=== PATIENT | male | born 1965 | race Hispanic/Latino ===

== ENCOUNTER 2019-06-13 19:53 | Inpatient (IN) | payer OTHER ==
[~2019-06-13 19:53] MED LIST: Iopamidol 370 76% 100 ML VIAL ONE; Iopamidol 370 76% 50 ML VIAL FS ONE
[2019-06-13] MEDS ORDERED: Heparin 25,000 units/D5W 500 ML ONE (20:21)
[2019-06-13] MEDS ORDERED: Nitroglycerin 0.4 MG TAB (25 Tab Bottle) SL PRN (20:35)
[2019-06-13] MEDS ORDERED: Morphine 2 MG/ML SYRINGE SLOW IVP PRN (20:35)
[2019-06-13] MEDS ORDERED: Sodium Chloride 0.9% 1,000 ML IV SCH (20:45)
[2019-06-13] MEDS ORDERED: Potassium Chloride 20 MEQ TAB PO SCH (20:45)
[2019-06-13] MEDS ORDERED: Atorvastatin Calcium 40 MG TAB PO SCH (21:00)
--- NOTE | 2019-06-13 21:09 | HP ---
CHIEF COMPLAINT: Chest pain. HISTORY OF PRESENT ILLNESS: Mr. Sharp is a pleasant 53-year-old white gentleman who comes to the hospital through his own car for chest pain. He went to the [place] [facility] where he had an EKG that showed anterior ST elevations with the reciprocal changes, so he was transferred over for further evaluation and care. He was taken emergently to the catheterization lab, when he was found to have a left main disease with severe LAD complex lesion with diagonal and severe intermediate ramus disease as well as severe OM1 disease. He has a nondominant right which has a 90% obstruction as well proximally. His EF remains about 50% to 55% with mostly apical hypokinesis. He is pain free on his arrival to [place] here in [place] and remains pain-free at the end of our procedure. He denies having any problems with his heart in the past. He recently had a physical for his company and even had a stress test for this, which was unremarkable. PAST MEDICAL HISTORY: Hypertension. SOCIAL HISTORY: No alcohol, tobacco, or drugs. 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 FAMILY HISTORY: Noncontributory. REVIEW OF SYSTEMS: A 12-point review of systems was done and was all negative unless stated in the History of Present Illness. OUTPATIENT MEDICATIONS: 1. Lisinopril 10 mg a day. 2. Amlodipine 10 mg a day. ALLERGIES: NO KNOWN DRUG ALLERGIES. PHYSICAL EXAMINATION: VITAL SIGNS: Blood pressure 142/88, heart rate of 72, respiratory rate 20, saturating 98% on 2 L nasal cannula. GENERAL: Awake, alert, oriented x3. No distress. HEENT: Normocephalic, atraumatic. NECK: Supple. LUNGS: Clear. CARDIOVASCULAR: S1, S2. No S3 or S4. No murmurs. ABDOMEN: Soft. Positive bowel sounds. EXTREMITIES: No edema. SKIN: Warm and dry. LABORATORY WORK: Reviewed. CBC with a white count of 12, hemoglobin of 16, hematocrit of 51, platelet count of 308. Chemistry with a sodium of 137, potassium was 2.9, chloride of 101, carbon dioxide of 20, anion gap of 19, BUN of 14, creatinine 0.95, GFR of 83, glucose of 120, calcium of 10, total bilirubin of 0.4. AST, ALT, alkaline phosphatase were all normal. CK 145, CK-MB 1.3 with a troponin of 0.05, subsequent troponin was 0.624. Albumin of 4.8, lipase of 34. EKG was reviewed. Chest x-ray was reviewed. No acute process. ASSESSMENT AND PLAN: 1. Acute anterior ST-elevation myocardial infarction. 2. Multivessel coronary artery disease. 3. Left main disease. 4. Hypertension. PLANS: 1. Consultation with Cardiothoracic Surgery for revascularization with bypass surgery. I already spoke with Dr. Silva. He will evaluate today as the patient is stable hemodynamically, chest pain-free. This may be performed tomorrow morning instead of emergently at this time. 2. We will continue a heparin drip overnight. 3. Bedrest for now. Strict. 4. PPI for stress ulcer prophylaxis. 5. Full code. 6. Disposition, pending clinical evolution. Job ID: [id number]
[2019-06-13 21:23] LABS: CKMB 29.3 ng/mL (0-6.6); Troponin I 1.453 ng/mL (< 0.028)
[2019-06-13 21:49] VITALS: BMI 28.0
[2019-06-13] MEDS ORDERED: Communication Order-Pharmacy FS SCH (22:16)
[2019-06-13 22:41] LABS: Hemoglobin A1c 5.5 % (4.0-6.0)
[2019-06-13] MEDS ORDERED: Heparin 10,000 UNITS/ 10 ML VIAL SLOW IVP SCH (22:45)
[2019-06-13] MEDS ORDERED: Heparin 25,000 units/D5W 500 ML IV SCH (22:45)
[2019-06-14 02:52] LABS: #Lymphocytes 1.2 thou/uL (1.20-3.40); #Monocytes 0.6 thou/uL (0.11-0.59); #Neutrophils 7.8 thou/uL (1.40-6.50); %Basophils 0.2 % (0.0-1.0); %Eosinophils 0.3 % (0.0-10.0); %Lymphocytes 12.3 % (21.0-51.0); %Monocytes 6.4 % (0.0-10.0); %Neutrophils 80.8 % (42.0-75.0); Hemoglobin 15.1 g/dL (14.0-18.0); Mean Corpuscular HGB CONC 34.6 g/dL (32.0-36.0); Mean Corpuscular Volume 89.5 fL (78.0-98.0); Mean Platelet Volume 6.1 fL (7.4-10.4); Platelet Count 250 thou/uL (130-400); RBC Distribution Width 12.2 % (11.5-14.5); Red Blood Cell (RBC) Count 4.86 mill/uL (4.70-6.10); White Blood Cell (WBC) Count 9.7 thou/uL (4.8-10.8)
[2019-06-14 03:23] LABS: ALT (SGPT) 49 U/L (8-55); AST (SGOT) 125 U/L (5-34); Albumin 4.1 g/dL (3.5-5.0); Alkaline Phosphatase 78 U/L (40-150); Anion Gap 13 mmol/L (10-20); BUN (Urea Nitrogen) 13 mg/dL (8.4-25.7); Bilirubin, Total 0.4 mg/dL (0.2-1.2); Calc. Creatinine Clearance 149 mL/min (70-130); Calcium 9.1 mg/dL (7.8-10.44); Carbon Dioxide 22 mmol/L (22-29); Chloride 104 mmol/L (98-107); Estimated GFR-MDRD Greater than 90; Globulin 2.6 g/dL (2.4-3.5); Glucose 144 mg/dL (70-105); Potassium 3.9 mmol/L (3.5-5.1); Protein, Total 6.7 g/dL (6.0-8.3); Sodium 135 mmol/L (136-145)
[2019-06-14 03:44] LABS: CKMB 80.3 ng/mL (0-6.6); Troponin I 24.533 ng/mL (< 0.028)
--- NOTE | 2019-06-14 03:57 | CON ---
DATE OF CONSULTATION: 06/13/2019 REQUESTING PHYSICIAN: Dr. Brown. CHIEF COMPLAINT: Chest tightness. HISTORY OF PRESENT ILLNESS: The patient is 53-year-old man with minimal past medical history, but a positive family history of premature coronary artery disease. Yesterday while doing simple chores around the house, he noticed that he was a little bit short of breath far more easily than he should have been. He had no more problems until this morning when he had some esmer chest tightness while drinking his morning cup of coffee. It was not particularly bad and was a brief episode and resolved spontaneously. This evening, however, the chest tightness recurred, this time being much more severe. He had an odd sensation in his left arm, and he broke out into a cold sweat. At an outside institution, he was noted to have ST elevation, and he was transferred here. By his arrival at [facility], he was pain-free, but already had an elevated troponin which has trended upwards. He was taken urgently to cardiac catheterization, where he was found to have severe coronary artery disease and included an ostial left main lesion. PAST MEDICAL HISTORY: Significant for hypertension. MEDICATIONS: His home medications are: 1. Lisinopril 10 mg a day. 2. Norvasc 10 mg a day. ALLERGIES: HE DENIES ANY MEDICAL ALLERGIES. SOCIAL HISTORY: He does not smoke. His father had a heart attack in his mid 50s. A paternal uncle underwent coronary artery bypass grafting in his 70s. REVIEW OF SYSTEMS: Negative for any antecedent chest pain, pressure, squeezing, or tightness, any antecedent dyspnea on exertion, any orthopnea, swelling, PND, any eye, speech, facial, or extremity symptoms consistent with TIAs. Negative for any claudication symptoms. Negative for any shortness of breath. PHYSICAL EXAMINATION: GENERAL: He is a young, healthy-appearing man in no distress. VITAL SIGNS: Height 5 feet 9 inches. Weight is 175 pounds. On arrival in our emergency room, his heart rate was 103 and blood pressure 145/101. His heart rate is now 79 and blood pressure 136/63. He has no xanthelasma, no JVD, no carotid bruits. CHEST: Clear to auscultation. He has a regular rate and rhythm. ABDOMEN: Soft and nontender. He has easily palpable radial, popliteal, and dorsalis pedis pulses. He has a right femoral sheath in place. EXTREMITIES: Devon testing on his nondominant left hand was normal, both clinically based on capillary refill and on pulse oximetry waveform. He has no obvious varicosities. NEUROLOGIC: Grossly nonfocal. LABORATORY DATA: Showed a white count of 12.0, hemoglobin of 16.9, hematocrit of 51.8, and platelets 308,000. Sodium is 137, potassium 2.9, chloride 101, CO2 of 20, glucose 120, BUN 14, creatinine 0.95, calcium is 10, protein 8.1, albumin 4.8, bilirubin 0.4, alkaline phosphatase 87, AST 34, ALT 51. His initial CK-MB was 1.3 and a followup done about 2 hours later was 29.3. His initial troponin was 0.056. About an hour and a half later, it was 0.624, and about an hour after that, was 1.453. His chest x-ray is somewhat under-penetrated, but it is somewhat suggestive of edema. His cardiac catheterization shows a left dominant system with disease, but very small nondominant right. He has about a 60% ostial left main lesion that causes pressure waveform damping when engaging a 6-Bahraini catheter. He has a very high-grade 95 or greater percent lesion in the LAD at the first septal prospect manager. He has a bifurcated very high diagonal or ramus-type vessel that bifurcates. He has a long but small caliber second diagonal with a high-grade lesion in it. He has some luminal irregularity in his mid LAD. There is a 95% or greater lesion and fairly good-sized OM-1 after some luminal irregularity in the proximal circumflex and then the circumflex terminates in arborization that includes a fairly good-sized circumflex PDA. LVEF is around 60% with some mild inferior apical hypokinesis. LV pressure is 130/1 with EDP of 21. Aortic pressure on pullback was 135/77 with a mean of 105. IMPRESSION AND RECOMMENDATIONS: Acute myocardial infarction with an ostial left main lesion in a left dominant system in addition to severe disease in proximal LAD, a ramus type vessel, and a large OM. His second diagonal may or may not be bypassable. I will plan on coronary artery bypass grafting. Job ID: [id number]
[2019-06-14] MEDS ORDERED: Heparin 30,000 units/30 ml VIAL ONE ×2 (07:28→09:34)
[2019-06-14] MEDS ORDERED: Norepinephrine 4 MG/4 ML VIAL ONE ×2 (07:28→09:34)
[2019-06-14] MEDS ORDERED: Aminocaproic Acid 5 GM/20 ML VIAL ONE ×2 (07:28→09:34)
[2019-06-14] MEDS ORDERED: Lidocaine 1% PF 5 ML VIAL ONE (07:28)
[2019-06-14] MEDS ORDERED: Rocuronium Bromide 10 MG/ML (10ML VIAL) ONE (07:28)
[2019-06-14] MEDS ORDERED: Sodium Bicarb 50 MEQ/50 ML VIAL ONE ×2 (07:28→09:34)
[2019-06-14] MEDS ORDERED: PHENYLEPHRINE-NS 100 MCG/ML 10 ML SYRINGE ONE (07:28)
[2019-06-14] MEDS ORDERED: Cardioplegic Soln 1,000 ML BAG ONE (07:28)
[2019-06-14] MEDS ORDERED: PROPOFOL 200 MG/20 ML VIAL ONE (07:28)
[2019-06-14] MEDS ORDERED: Thrombin 5000 UNITS/5 ML VIAL ONE (07:28)
[2019-06-14] MEDS ORDERED: Calcium Chloride 1 GM/10 ML Abboject SYRINGE ONE (07:28)
[2019-06-14] MEDS ORDERED: Papaverine 60 MG/2 ML VIAL ONE (07:28)
[2019-06-14] MEDS ORDERED: Heparin 5,000 UNITS/ML VIAL ONE (07:28)
[2019-06-14] MEDS ORDERED: Vecuronium 10 MG VIAL ONE (07:28)
[2019-06-14] MEDS ORDERED: Protamine Sulfate 250 MG/25 ML VIAL ONE (07:28)
[2019-06-14] MEDS ORDERED: Aspirin Chewable 81 MG TAB PO SCH (09:00)
--- NOTE | 2019-06-14 09:24 | RAD ---
CHEST 1 VIEW PORTABLE: HISTORY: Followup chest pain post interventional cardiology. FINDINGS: Somewhat less than optimal inspiration. Heart size is normal. No confluent pneumonia, overt edema, or pleural effusion. IMPRESSION: No significant acute intrathoracic disease. Stable from prior study. POS: NOLBERTO
--- NOTE | 2019-06-14 09:27 | CON ---
DATE OF CONSULTATION: 06/14/2019 REASON FOR CONSULTATION: ICU care. HISTORY OF PRESENT ILLNESS: Mr. Sharp is a pleasant 53-year-old male, who presented last night with chest pain. He was taken to the lab coordinator, found to have left main disease with severe LAD complex lesion with diagonal and intermediate ramus disease. He is to undergo bypass surgery later today. Currently, he is without chest pain and doing well. PAST MEDICAL HISTORY: Hypertension. PAST SURGICAL HISTORY: None. SOCIAL HISTORY: Does not smoke. Does not drink alcohol. 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 FAMILY MEDICAL HISTORY: Unremarkable. MEDICATIONS: Prior to admission; 1. Lisinopril 10 mg daily. 2. Amlodipine 10 mg daily. ALLERGIES: NONE. REVIEW OF SYSTEMS: Twelve-point review of systems is otherwise negative. PHYSICAL EXAMINATION: VITAL SIGNS: Temperature 98.4, pulse 102, blood pressure 139/81, O2 saturation 98%, and respiratory rate 16. GENERAL: He is a healthy-appearing male, in no acute distress. HEENT: Pupils are reactive. Sclerae are anicteric. Oropharynx is clear. NECK: No adenopathy or JVD. CHEST: Clear to auscultation anteriorly. CARDIAC: S1 and S2, regular without murmur. ABDOMEN: Soft, nontender, and nondistended. EXTREMITIES: No clubbing or cyanosis. He has a right groin arterial line in place. LABORATORY DATA: White blood cell count 9.7, hematocrit 43.5, and platelet count 250. Sodium 135, potassium 3.9, chloride 104, CO2 of 22, BUN 13, creatinine 0.7, and glucose 144. Troponin is 24.3. IMAGING DATA: Chest x-ray demonstrates no mass, effusion, or infiltrate. ASSESSMENT: 1. Myocardial infarction. 2. Coronary artery disease. PLAN: 1. Coronary artery bypass grafting surgery. 2. Pulmonary will be available postoperatively for ventilator management as needed. Job ID: [id number]
[2019-06-14] MEDS ORDERED: Potassium Chloride 60 MEQ/30 ML VIAL ONE (09:34)
[2019-06-14] MEDS ORDERED: Magnesium 5 GM/10 ML VIAL ONE (09:34)
[2019-06-14] MEDS ORDERED: Lidocaine 2% PF 100 mg/5 ml Syringe ONE (09:34)
[2019-06-14] MEDS ORDERED: Mannitol 12.5 GM/50 ML ONE (09:34)
[2019-06-14] MEDS ORDERED: Albumin 5% 500 ML ONE (10:16)
[2019-06-14] MEDS ORDERED: Heparin 10,000 UNITS/1 ML VIAL 30,000 UNITS in Sodium Chloride 0.9% 1,000 ML FS SCH (10:45)
[2019-06-14] MEDS ORDERED: Dexmedetomidine 200 MCG/2 ML VIAL ONE (10:50)
[2019-06-14] MEDS ORDERED: Fentanyl 250 MCG/5 ML VIAL ONE ×2 (10:50→16:10)
[2019-06-14] MEDS ORDERED: Midazolam HCl 5 mg/5 ml Vial ONE (10:50)
[2019-06-14] MEDS ORDERED: Insulin Regular 300 UNITS/3 ML VIAL ONE (14:16)
--- NOTE | 2019-06-14 14:23 | PDOC.CPN ---
- Subjective Date: 06/14/19 Time: 14:22 Interval history: No chest pain overnight. - Review of Systems General: denies: fever/chills, weight/appetite/sleep changes, night sweats, fatigue Respiratory: denies: cough, congestion, shortness of breath, exercise intolerance Cardiovascular: denies: chest pain, palpitation, edema, paroxysmal nocturnal dyspnea, orthopnea Gastrointestinal: denies: nausea, vomiting, diarrhea, constipation, abd pain, GI bleeding Musculoskeletal: denies: pain, tenderness, stiffness, swelling, arthritis/ arthralgias Neurological: denies: numbness, syncope, seizure, weakness - Objective Allergies/Adverse Reactions: Allergies Allergy/AdvReac Type Severity Reaction Status Date / Time No Known Allergies Allergy Unverified 06/13/19 20:39 Visit Medications: Current Medications Cefazolin Sodium (Cabg-Ancef) 2 gm SLOW IVP ONE CYNTHIA Stop: 06/14/19 23:59 Sodium Chloride (Flush - Normal Saline) 10 ml IVF Q12HR CYNTHIA Vital Signs & Weight: Vital Signs Temp Pulse Ox 06/14/19 08:00 98.4 F 98 06/14/19 04:00 98.2 F Weight 190 lb 4.143 oz - Quality Measures Condition: Myocardial Infarction CV meds: Beta Alberto: No (Braycardic), BRIDGETTE/ARB: Yes, Statin: Yes, ASA: Yes - Physical Exam General: alert & oriented x3, appears well, no apparent distress HEENT: mucus membranes moist, normocephaly Neck: supple neck Cardiac: regular rate and rhythm, no murmur Lungs: clear to auscultation, normal breath sounds, normal exam, no wheeze, rales, rhonchi Neuro: cranial nerve 2-12 intact, grossly intact, motor function intact, sensory function intact, negative rhomberg, coordination normal, no lateralizing findings Abdomen: unremarkable, active bowel sounds, soft, non-tender, no masses, no pulsations/bruits, no hepatosplenomegaly Skin: clear Musculoskeletal: normal range of motion, no pain, no fluid collection - Labs Result Diagrams: 06/14/19 16:31 06/14/19 16:31 Troponin/CKMB CK-MB (CK-2) 80.3 ng/mL (0-6.6) H* 06/14/19 02:42 Troponin I 24.533 ng/mL (< 0.028) H* 06/14/19 02:42 - Telemetry Sinus rhythms and dysrhythmias: sinus rhythm - Assessment/Plan Assessment/Plan: 1. Acute anterior STEMI 2. Multivessel CAD. 3. HTN PLAN: - CABG today. ADDENDUM: Late entry. 5:55 pm He had CABG done. He remains intubated but opens his eyes to verbal stimuli. Still on low dose Levophed to maintain blood pressure. Continue supportive care.
[2019-06-14] MEDS ORDERED: Acetaminophen 325 MG TAB PO PRN (16:14)
[2019-06-14] MEDS ORDERED: Mag-Al 1200 mg/1200 mg/30 ML UDCUP PO PRN (16:14)
[2019-06-14] MEDS ORDERED: Morphine 2 MG/ML SYRINGE SLOW IVP PRN (16:14)
[2019-06-14] MEDS ORDERED: Promethazine HCl 25 MG/ML VIAL IM PRN (16:14)
[2019-06-14] MEDS ORDERED: niCARdipine 25 MG in Sodium Chloride 0.9% 250 ML 240 ML IVPB PRN (16:14)
[2019-06-14] MEDS ORDERED: hydrALAZINE 20 MG/ML VIAL SLOW IVP PRN (16:14)
[2019-06-14] MEDS ORDERED: Post-Op Insulin Drip Protocol IVPB ONE (16:14)
[2019-06-14] MEDS ORDERED: Potassium Chloride 20 MEQ/100 ML PREMIX BAG IVPB PRN (16:14)
[2019-06-14] MEDS ORDERED: Bisacodyl 10 MG SUPP PR PRN (16:14)
[2019-06-14] MEDS ORDERED: Bisacodyl 5 MG TAB PO PRN (16:14)
[2019-06-14] MEDS ORDERED: Guaifenesin DM 100-10/5 ML UDCUP PO PRN (16:14)
[2019-06-14] MEDS ORDERED: Fentanyl 100 MCG/2 ML VIAL SLOW IVP PRN ×2 (16:14)
[2019-06-14] MEDS ORDERED: Nitroglycerin 50 MG/250 ML BOT 250 ML IVPB PRN (16:14)
[2019-06-14] MEDS ORDERED: Norepinephrine 8 MG/0.9% NS 250 ML IVPB PRN (16:14)
[2019-06-14] MEDS ORDERED: Ondansetron PF 4 MG/2 ML Vial IVP PRN (16:14)
[2019-06-14] MEDS ORDERED: Hetastarch 6% 500 ML 500 ML IVPB PRN (16:14)
[2019-06-14] MEDS ORDERED: HUMULIN R 100 UNITS in Sodium Chloride 0.9% 100 ML IVPB SCH (16:27)
[2019-06-14] MEDS ORDERED: Insulin Regular 300 UNITS/3 ML VIAL SC PRN (16:27)
[2019-06-14] MEDS ORDERED: Dextrose 5% in Water 1,000 ML IV PRN (16:27)
[2019-06-14] MEDS ORDERED: Dextrose 50% Abboject 50 ML SYRINGE SLOW IVP PRN (16:27)
[2019-06-14 16:37] LABS: Base Excess (BEa) -1.9 mEq/L (-2.0 to +3.0); CO2 Tension 30.2 mmHg (35.0-45.0); Calcium, Ionized 1.02 mmol/L (1.12-1.30); Carboxyhemoglobin (COHb) 0.7 gm% (0.0-3.0); Hemoglobin (Hb) 12.1 g/dL (14.0-18.0); O2 Tension (PaO2) 168.5 mmHg (80.0-100.0); Potassium - ABG Lab 4.02 mmol/L (3.70-5.30); Puncture Site ALINE; pH, Arterial 7.46 (7.35-7.45)
[2019-06-14 16:46] LABS: INR-International Normal Ratio 1.4; PTT 33.4 SEC (22.9-36.1); Prothrombin Time 17.4 SEC (12.0-14.7)
[2019-06-14] MEDS: Ketorolac Tromethamine 30 MG/ML VIAL IVP SCH (16:46)
[2019-06-14] MEDS: Sodium Chloride 0.9% 1,000 ML IV SCH (16:48)
[2019-06-14 16:55] LABS: #Lymphocytes 1.1 thou/uL (1.20-3.40); #Monocytes 0.9 thou/uL (0.11-0.59); #Neutrophils 17.2 thou/uL (1.40-6.50); %Basophils 0.1 % (0.0-1.0); %Eosinophils 0.2 % (0.0-10.0); %Lymphocytes 5.8 % (21.0-51.0); %Monocytes 4.7 % (0.0-10.0); %Neutrophils 89.2 % (42.0-75.0); Hemoglobin 12.1 g/dL (14.0-18.0); Mean Corpuscular HGB CONC 35.4 g/dL (32.0-36.0); Mean Corpuscular Hemoglobin 31.2 pg (27.0-31.0); Mean Corpuscular Volume 88.3 fL (78.0-98.0); Mean Platelet Volume 6.2 fL (7.4-10.4); Platelet Count 139 thou/uL (130-400); RBC Distribution Width 12.1 % (11.5-14.5); Red Blood Cell (RBC) Count 3.87 mill/uL (4.70-6.10); White Blood Cell (WBC) Count 19.2 thou/uL (4.8-10.8)
--- NOTE | 2019-06-14 17:02 | RAD ---
Exam: Chest one view: HISTORY: Postop open heart COMPARISON: 06/13/2019 FINDINGS: Endotracheal tube and right central line in place with some chest tubes. Poor inspiratory effort with some bibasilar subsegmental atelectatic changes and vascular congestion but no pneumothorax or other acute process. IMPRESSION: Poor inspiration with bibasilar subsegmental atelectasis and mild vascular congestion.
[2019-06-14 17:05] LABS: Anion Gap 9 mmol/L (10-20); BUN (Urea Nitrogen) 7 mg/dL (8.4-25.7); Calc. Creatinine Clearance 159 mL/min (70-130); Calcium 7.2 mg/dL (7.8-10.44); Carbon Dioxide 22 mmol/L (22-29); Chloride 110 mmol/L (98-107); Estimated GFR-MDRD Greater than 90; Glucose 123 mg/dL (70-105); Potassium 4.1 mmol/L (3.5-5.1); Sodium 137 mmol/L (136-145)
[2019-06-14] MEDS: Famotidine/PF 20 mg/2ml Vial SLOW IVP SCH (20:53)
[2019-06-14] MEDS: Docusate 100 MG CAP PO SCH (21:00)
[2019-06-14] MEDS: Atorvastatin Calcium 40 MG TAB PO SCH (21:00)
[2019-06-14 21:13] LABS: Hemoglobin 12.9 g/dL (14.0-18.0)
[2019-06-14 21:20] LABS: Actual Bicarbonate (HCO3a) 18.4 mEq/L (22-28); Base Excess (BEa) -3.6 mEq/L (-2.0 to +3.0); Hemoglobin (Hb) 13.1 g/dL (14.0-18.0); O2 Tension (PaO2) 175.8 mmHg (80.0-100.0); Potassium - ABG Lab 4.75 mmol/L (3.70-5.30); pH, Arterial 7.47 (7.35-7.45)
[2019-06-14 21:30] LABS: Potassium 4.8 mmol/L (3.5-5.1)
[2019-06-14 21:39] LABS: ALV-art Gradient 77.275 (0-20); CO2 Tension 25.7 mmHg (35.0-45.0); Puncture Site LINE
--- NOTE | 2019-06-14 22:33 | OP ---
DATE OF PROCEDURE: 06/14/2019 PROCEDURES PERFORMED: Coronary artery bypass grafting x5 with left internal mammary artery to the distal left anterior descending, sequential left radial artery from the aorta to the first diagonal to the first obtuse marginal and separate reverse greater saphenous vein graft from the aorta to the second diagonal to the posterolateral branch of he distal circumflex. PREOPERATIVE DIAGNOSIS: Left main coronary artery disease with post-infarction angina. POSTOPERATIVE DIAGNOSIS: Left main coronary artery disease with post-infarction angina. APPLIED RESEARCHER: Moose Goldberg. ANESTHESIA: General endotracheal anesthesia. INDICATIONS: The patient is a 53-year-old man with minimal past medical history, but a positive family history of premature coronary artery disease. He had some dyspnea on mild exertion and then the following morning, had a brief episode of chest tightness at rest that resolved spontaneously. Later that evening, he developed a more severe episode of chest tightness that persisted and radiated to his left arm and it was associated with diaphoresis. By report, he had some anterior ST elevation and was transferred here. By which time, his pain had resolved. Cardiac catheterization showed extremely high-grade lesions in his proximal LAD, high ramus type first diagonal as well as the small second diagonal and the first obtuse marginal. He had a 60% ostial left main lesion in a left dominant system. He had preserved left ventricular function. During the night, he had about an hour of self-limited mild chest discomfort. He is now taken to the operating room for surgical revascularization. FINDINGS: Pump time 110 minutes. Cross-clamp time 65 minutes. Good quality MACY and radial artery. His saphenous vein was somewhat small, but otherwise of good quality. His LAD was about 1.5 mm. The first diagonal was about 1.5 mm. The second diagonal was about 1 to 1.5 mm. The first obtuse marginal was about 2 mm. The posterolateral branch of the distal circumflex was the largest of the distal arborization, it was about 2 mm. The pericardium was closed. NARRATIVE REPORT: After informed consent was obtained, the patient was taken to the operating room and placed in supine position on the operating table. After the induction of general endotracheal anesthesia, his left greater saphenous vein was ultrasonographically mapped and marked. Repeat Devon testing using the pulse ox waveform confirmed adequacy of hand perfusion with ulnar flow only. The patient was placed in Trendelenburg. His right upper chest was prepped and draped in sterile fashion, and a triple-lumen central line kit was used to place a right subclavian central line by the Seldinger technique. All 3 ports easily aspirated and flushed. The line was secured. The patient's torso, left upper extremity, groins, and bilateral lower extremities were prepped and draped in sterile fashion. My campaign assistant first harvested the radial artery making an incision between the muscle bellies at the proximal forearm. The radial artery was exposed and harvested to near the wrist using clips to control larger branches and the electrocautery to control smaller ones harvesting attached pedicle of vein and tissue. The artery was ligated and divided proximally and distally, and the wound was closed in layers of subcutaneous and subcuticular Vicryl. The radial artery was flushed and placed in a container of saline solution and incision was made then over the saphenous vein just above the left knee and it was endoscopically harvested from that level up to the groin. Stab incision was used for the proximal transection point. A counter incision was made in the mid thigh to control an area of bleeding, where a side branch did not adequately coagulate. Those harvest sites were likewise closed. Meanwhile, a median sternotomy was performed and the left internal mammary artery was mobilized as a skeletonized in-situ graft from the level of the xiphoid to the level of the subclavian vein through an extrapleural exposure. The patient was heparinized. The mammary was ligated and divided distally. There was good flow through the mammary, which was instilled intraluminally with papaverine solution. The mammary bed was inspected for hemostasis and the MACY retractor was replaced with a Vasquez retractor. The medial reflections of the pleura were mobilized from apex to a level below the hilum. The pericardium was opened and marsupialized. The aorta was palpated and was soft. A double concentric purse-string of 2-0 Ethibond was placed in the ascending aorta, just beyond the pericardial reflection and a single purse-string was placed in the right atrial appendage. Aortic and venous cannulae were inserted and secured by their purse-strings. The plane between the aorta and the pulmonary artery was developed. A longitudinal slit was made in the pericardium anterior to the left phrenic nerve, through which the mammary could be passed. The heart was examined. The vessels to be bypassed were identified. An aortic cross-clamp was applied and cardioplegia was administered through an aortic root needle. When arrest have been achieved, attention was turned to the distal arborization of the circumflex while the circumflex PDA appeared to be reasonably good quality vessel. The posterolateral branch lateral to that was larger, both in caliber and in epicardial length. It was opened near where it emerged from that. Fat pad at the AV grooved and reverse greater saphenous vein was anastomosed there end-to-side with running Prolene suture. The anastomosis was tested by flushing cold cardioplegia down the graft. Attention was then turned to the anterolateral aspect of the heart. Points on the OM1 proximally and on the posterior branch via ramus type first diagonal were selected for a sequential grafting technique with radial artery. The proximal end of the radial artery was spatulated after opening the OM and it was anastomosed end-to-side to the OM orienting the anastomosis perpendicular to the axis of the coronary. The diagonal was then opened. The pedicle was trimmed away from the radial artery at a corresponding point and it was opened longitudinally. A uarb-cq-[id number] anastomosis was then constructed from the radial artery to the first diagonal, again orienting the anastomosis perpendicular to the axis of the coronary. The second diagonal was then opened and the saphenous vein was anastomosed to it end-to-side. The LAD was then opened and the mammary was anastomosed to it with running 7-0 Prolene and tacked to the epicardium. The aortic cross-clamp was replaced with a partial occluding clamp. The posterolateral graft was brought along the right side of the heart and anastomosed to the more proximal aortotomy. The diagonal vein graft was anastomosed to the more distal aortotomy. Venotomy was made in the calvert of the diagonal vein graft proximal anastomosis and the sequential radial artery graft was spatulated and anastomosed to it with running 7-0 Prolene. The radial artery was allowed to back bleed and the suture line secured. The partial occluding clamp was removed and the vein grafts were de-aired. The anastomoses were inspected for hemostasis. The proximal anastomoses were marked with small hemoclips. A posterior pericardial drain was brought out through a separate incision and secured with suture. Right atrial and right ventricular temporary epicardial pacing wires were placed. When the patient was adequately rewarmed, he was then easily from cardiopulmonary bypass. The aortic and venous cannulae were removed and the purse-string secured. Protamine was administered. When hemostasis was adequate, an anterior mediastinal drain was placed. The pericardium was closed over it with running Vicryl. The cut surfaces of the sternum were treated with vancomycin paste and platelet-rich GPS. The sternum was reapproximated with #7 stainless steel wires. The fascia was closed over the wires with heavy Vicryl. The subcutaneous tissue was treated with platelet-poor GPS and then reapproximated with 2-0 Vicryl. The skin was closed with a running 3-0 Vicryl subcuticular suture. The wounds were dressed, and the patient was taken to the intensive care unit in stable condition. Job ID: [id number]
[2019-06-15] MEDS: Ketorolac Tromethamine 30 MG/ML VIAL IVP SCH ×3 (00:10→11:21)
[2019-06-15 05:14] LABS: #Lymphocytes 0.9 thou/uL (1.20-3.40); #Monocytes 0.9 thou/uL (0.11-0.59); #Neutrophils 11.5 thou/uL (1.40-6.50); %Basophils 0.1 % (0.0-1.0); %Eosinophils 0.1 % (0.0-10.0); %Lymphocytes 6.7 % (21.0-51.0); %Monocytes 6.6 % (0.0-10.0); %Neutrophils 86.5 % (42.0-75.0); Hemoglobin 12.1 g/dL (14.0-18.0); Mean Corpuscular HGB CONC 34.4 g/dL (32.0-36.0); Mean Corpuscular Hemoglobin 30.8 pg (27.0-31.0); Mean Corpuscular Volume 89.6 fL (78.0-98.0); Mean Platelet Volume 6.8 fL (7.4-10.4); Platelet Count 163 thou/uL (130-400); RBC Distribution Width 12.5 % (11.5-14.5); Red Blood Cell (RBC) Count 3.93 mill/uL (4.70-6.10); White Blood Cell (WBC) Count 13.4 thou/uL (4.8-10.8)
[2019-06-15] MEDS: Sodium Chloride 0.9% 1,000 ML IV SCH (05:24)
[2019-06-15 05:33] LABS: Anion Gap 9 mmol/L (10-20); BUN (Urea Nitrogen) 9 mg/dL (8.4-25.7); Calc. Creatinine Clearance 154 mL/min (70-130); Calcium 7.5 mg/dL (7.8-10.44); Carbon Dioxide 24 mmol/L (22-29); Chloride 107 mmol/L (98-107); Estimated GFR-MDRD Greater than 90; Glucose 137 mg/dL (70-105); Potassium 4.6 mmol/L (3.5-5.1); Sodium 135 mmol/L (136-145)
[2019-06-15] MEDS ORDERED: diphenhydrAMINE 25 MG CAP PO PRN (08:16)
[2019-06-15] MEDS ORDERED: Zolpidem Tartrate 5 MG TAB PO PRN (08:16)
[2019-06-15] MEDS ORDERED: Bisacodyl 5 MG TAB PO PRN (08:16)
[2019-06-15] MEDS ORDERED: Nitroglycerin 0.4 MG TAB (25 Tab Bottle) SL PRN (08:16)
[2019-06-15] MEDS ORDERED: Guaifenesin DM 100-10/5 ML UDCUP PO PRN (08:16)
[2019-06-15] MEDS ORDERED: Mineral Oil ENEMA PR PRN (08:16)
[2019-06-15] MEDS ORDERED: Bisacodyl 10 MG SUPP PR PRN (08:16)
[2019-06-15] MEDS ORDERED: Artificial Tears 18 DROP/0.9 ML EA EYE PRN (08:16)
[2019-06-15] MEDS ORDERED: Mag-Al 1200 mg/1200 mg/30 ML UDCUP PO PRN (08:16)
--- NOTE | 2019-06-15 08:31 | PRG ---
DATE OF SERVICE: 06/15/2019 SUBJECTIVE: The patient is extubated after finishing his bypass surgery late yesterday. He had no problem after extubation. He has minimal pain at this time. OBJECTIVE: VITAL SIGNS: On exam, temperature is 99.1, pulse 111, and blood pressure 105/68. Intake 3610, output 2450. HEENT: Unremarkable. NECK: No JVD. CHEST: Clear to auscultation. CARDIAC: S1 and S2, regular. ABDOMEN: Soft. EXTREMITIES: No edema. IMAGING DATA: His chest x-ray shows no acute findings. LABORATORY DATA: White blood cell count 13.4, hematocrit 35.3, and platelet count 163. Sodium 135, potassium 4.6, BUN 9, creatinine 0.6, and glucose 137. ASSESSMENT: 1. Post coronary artery bypass grafting with stable respiratory status. 2. Myocardial infarction. 3. Coronary artery disease. PLAN: He has been extubated successfully. He is doing well. I anticipate that he will probably be transferred the floor by tomorrow. Job ID: [id number]
[2019-06-15] MEDS: Aspirin Chewable 81 MG TAB PO SCH (08:36)
[2019-06-15] MEDS: Docusate 100 MG CAP PO SCH ×2 (08:36→22:05)
[2019-06-15] MEDS: Metoprolol Tartrate 25 MG TAB PO SCH ×2 (08:36→22:04)
[2019-06-15] MEDS: Famotidine/PF 20 mg/2ml Vial SLOW IVP SCH (08:37)
--- NOTE | 2019-06-15 09:45 | RAD ---
PORTABLE CHEST: HISTORY: Postop open heart surgery. COMPARISON: 06/14/2019 study. FINDINGS: The endotracheal tube has been removed. Right subclavian line remains in position. There are subseg mental atelectatic changes in the lung bases. IMPRESSION: Interval removal of the endotracheal tube. POS: OFF
[2019-06-15] MEDS: HYDROcodone/Acetaminophen 5/325 mg Tablet PO PRN ×2 (10:24→20:24)
--- NOTE | 2019-06-15 18:21 | PDOC.CPN ---
- Subjective Date: 06/15/19 Time: 12:30 - Review of Systems General: denies: fever/chills, weight/appetite/sleep changes, night sweats, fatigue Respiratory: reports: cough. denies: congestion, shortness of breath, exercise intolerance Cardiovascular: reports: chest pain. denies: palpitation, edema, paroxysmal nocturnal dyspnea, orthopnea Gastrointestinal: denies: nausea, vomiting, diarrhea, constipation, abd pain, GI bleeding Musculoskeletal: reports: pain. denies: tenderness, stiffness, swelling, arthritis/arthralgias Neurological: denies: numbness, syncope, seizure, weakness - Objective Allergies/Adverse Reactions: Allergies Allergy/AdvReac Type Severity Reaction Status Date / Time No Known Allergies Allergy Unverified 06/13/19 20:39 Visit Medications: Current Medications Hydrocodone Bitart/Acetaminophen ([place] 5/325) 1 tab PO Q4H PRN PRN Reason: Moderate Pain (4-6) Hydrocodone Bitart/Acetaminophen ([place] 5/325) 2 tab PO Q4H PRN PRN Reason: Severe Pain (7-10) Last Admin: 06/15/19 10:24 Dose: 2 tab Al Hydroxide/Mg Hydroxide (Maalox) 30 ml PO Q4H PRN PRN Reason: Indigestion Artificial Tears (Tears Naturale) 0 drop EA EYE PRN PRN PRN Reason: Dry Eyes Aspirin (Aspirin Chewable) 81 mg PO DAILY [facility] Last Admin: 06/15/19 08:36 Dose: 81 mg Atorvastatin Calcium (Lipitor) 40 mg PO HS [facility] Last Admin: 06/14/19 21:00 Dose: Not Given Bisacodyl (Dulcolax) 10 mg PO Q12H PRN PRN Reason: Constipation Bisacodyl (Dulcolax) 10 mg IN Q12H PRN PRN Reason: Constipation Diphenhydramine HCl (Benadryl) 25 mg PO Q6H PRN PRN Reason: Itching & Insomnia or Derrell Javy Docusate Sodium (Colace) 100 mg PO BID [facility] Last Admin: 06/15/19 08:36 Dose: 100 mg Guaifenesin/Dextromethorphan (Robitussin Dm) 15 ml PO Q4H PRN PRN Reason: Cough Metoprolol Tartrate (Lopressor) 12.5 mg PO BID [facility] Last Admin: 06/15/19 08:36 Dose: 12.5 mg Mineral Oil (Fleet Mineral Oil) 133 ml IN DAILYPRN PRN PRN Reason: Constipation Nitroglycerin (Nitrostat) 0.4 mg SL Q5MIN PRN PRN Reason: Chest Pain Ondansetron HCl (Zofran) 4 mg IVP Q6H PRN PRN Reason: Nausea/Vomiting Last Admin: 06/14/19 16:47 Dose: 4 mg Sodium Chloride (Flush - Normal Saline) 10 ml IVF Q12HR [facility] Last Admin: 06/15/19 08:37 Dose: 10 ml Zolpidem Tartrate (Ambien) 5 mg PO HSPRN PRN PRN Reason: Insomnia Vital Signs & Weight: Vital Signs Temp Pulse Pulse Pulse Resp BP BP 06/15/19 16:00 99.3 F 110 H 16 06/15/19 13:55 119 H 116 H 109/64 103/77 06/15/19 12:00 98.8 F 06/15/19 08:00 99.1 F 06/15/19 07:00 99.1 F BP Pulse Ox Pulse Ox Pulse Ox 06/15/19 16:00 102/79 95 06/15/19 13:55 95 93 L 06/15/19 12:00 06/15/19 08:00 96 06/15/19 07:00 Admit Weight 175 lb 0.752 oz Weight 175 lb 0.752 oz - Quality Measures Condition: Coronary Artery Disease, Myocardial Infarction CV meds: Beta Alberto: Yes, BRIDGETTE/ARB: Yes, Statin: Yes, ASA: Yes, Plavix/Effient/ Brilinta: No - Physical Exam General: alert & oriented x3, no apparent distress HEENT: mucus membranes moist Neck: supple neck Cardiac: regular rate and rhythm, no murmur Lungs: clear to auscultation Neuro: cranial nerve 2-12 intact Abdomen: active bowel sounds, soft, non-tender Skin: clear Musculoskeletal: normal range of motion - Labs Result Diagrams: 06/15/19 04:00 06/15/19 04:00 Troponin/CKMB CK-MB (CK-2) 80.3 ng/mL (0-6.6) H* 06/14/19 02:42 Troponin I 24.533 ng/mL (< 0.028) H* 06/14/19 02:42 - Telemetry Sinus rhythms and dysrhythmias: sinus rhythm - Assessment/Plan Assessment/Plan: 1. Acute anterior STEMI 2. Multivessel CAD. 3. HTN 4. S/P CABG x 5 Stanley to LAD, Sequential left radial to D1 and OM1, SVG to D2, SVG to the LCx, SVG to the PL PLAN: - ASA/statin for life. - On low dose BB. - ACEI once BP allows. - Start PT and increase as tolerated. - May transfer to tele floor.
[2019-06-15] MEDS: Atorvastatin Calcium 40 MG TAB PO SCH (22:59)
[2019-06-16] MEDS: HYDROcodone/Acetaminophen 5/325 mg Tablet PO PRN ×3 (05:18→21:56)
[2019-06-16 05:28] LABS: #Lymphocytes 1.3 thou/uL (1.20-3.40); #Monocytes 0.8 thou/uL (0.11-0.59); #Neutrophils 8.4 thou/uL (1.40-6.50); %Basophils 0.1 % (0.0-1.0); %Eosinophils 0.2 % (0.0-10.0); %Lymphocytes 12.5 % (21.0-51.0); %Monocytes 7.8 % (0.0-10.0); %Neutrophils 79.4 % (42.0-75.0); Hemoglobin 10.2 g/dL (14.0-18.0); Mean Corpuscular HGB CONC 34.3 g/dL (32.0-36.0); Mean Corpuscular Volume 90.3 fL (78.0-98.0); Mean Platelet Volume 6.7 fL (7.4-10.4); Platelet Count 151 thou/uL (130-400); RBC Distribution Width 12.3 % (11.5-14.5); Red Blood Cell (RBC) Count 3.29 mill/uL (4.70-6.10); White Blood Cell (WBC) Count 10.6 thou/uL (4.8-10.8)
[2019-06-16 05:45] LABS: Anion Gap 10 mmol/L (10-20); BUN (Urea Nitrogen) 12 mg/dL (8.4-25.7); Calc. Creatinine Clearance 129 mL/min (70-130); Calcium 8.2 mg/dL (7.8-10.44); Carbon Dioxide 25 mmol/L (22-29); Chloride 102 mmol/L (98-107); Estimated GFR-MDRD Greater than 90; Glucose 130 mg/dL (70-105); Potassium 4.5 mmol/L (3.5-5.1); Sodium 132 mmol/L (136-145)
--- NOTE | 2019-06-16 08:29 | RAD ---
EXAM: Single view of the chest HISTORY: Status post CABG COMPARISON: 06/15/2019 FINDINGS: Single view of the chest shows a normal sized cardiomediastinal silhouette. The patient is status post sternotomy. The central venous catheter is unchanged in position. There is no evidence of consolidation, mass, or pleural effusion. The bones are unremarkable. IMPRESSION: Stable exam
[2019-06-16] MEDS: Aspirin Chewable 81 MG TAB PO SCH (10:00)
[2019-06-16] MEDS: Metoprolol Tartrate 25 MG TAB PO SCH ×2 (10:00→21:56)
[2019-06-16] MEDS: Docusate 100 MG CAP PO SCH ×2 (10:00→21:56)
--- NOTE | 2019-06-16 17:13 | PDOC.CPN ---
- Subjective Date: 06/16/19 Time: 12:30 Interval history: He is doing well. He is walking around without issues. No chest pain. No BM but passing gas. - Review of Systems General: denies: fever/chills, weight/appetite/sleep changes, night sweats, fatigue Respiratory: denies: cough, congestion, shortness of breath, exercise intolerance Cardiovascular: denies: chest pain, palpitation, edema, paroxysmal nocturnal dyspnea, orthopnea Gastrointestinal: denies: nausea, vomiting, diarrhea, constipation, abd pain, GI bleeding Musculoskeletal: reports: pain. denies: tenderness, stiffness, swelling, arthritis/arthralgias Neurological: denies: numbness, syncope, seizure, weakness - Objective Allergies/Adverse Reactions: Allergies Allergy/AdvReac Type Severity Reaction Status Date / Time No Known Allergies Allergy Unverified 06/13/19 20:39 Visit Medications: Current Medications Hydrocodone Bitart/Acetaminophen ([place] 5/325) 1 tab PO Q4H PRN PRN Reason: Moderate Pain (4-6) Last Admin: 06/16/19 16:21 Dose: 1 tab Hydrocodone Bitart/Acetaminophen ([place] 5/325) 2 tab PO Q4H PRN PRN Reason: Severe Pain (7-10) Last Admin: 06/16/19 05:18 Dose: 2 tab Al Hydroxide/Mg Hydroxide (Maalox) 30 ml PO Q4H PRN PRN Reason: Indigestion Artificial Tears (Tears Naturale) 0 drop EA EYE PRN PRN PRN Reason: Dry Eyes Aspirin (Aspirin Chewable) 81 mg PO DAILY [facility] Last Admin: 06/16/19 10:00 Dose: 81 mg Atorvastatin Calcium (Lipitor) 40 mg PO HS [facility] Last Admin: 06/15/19 22:59 Dose: 40 mg Bisacodyl (Dulcolax) 10 mg PO Q12H PRN PRN Reason: Constipation Bisacodyl (Dulcolax) 10 mg MT Q12H PRN PRN Reason: Constipation Diphenhydramine HCl (Benadryl) 25 mg PO Q6H PRN PRN Reason: Itching & Insomnia or Derrell Javy Docusate Sodium (Colace) 100 mg PO BID [facility] Last Admin: 06/16/19 10:00 Dose: 100 mg Guaifenesin/Dextromethorphan (Robitussin Dm) 15 ml PO Q4H PRN PRN Reason: Cough Metoprolol Tartrate (Lopressor) 25 mg PO BID [facility] Last Admin: 06/16/19 10:00 Dose: 25 mg Mineral Oil (Fleet Mineral Oil) 133 ml MT DAILYPRN PRN PRN Reason: Constipation Nitroglycerin (Nitrostat) 0.4 mg SL Q5MIN PRN PRN Reason: Chest Pain Ondansetron HCl (Zofran) 4 mg IVP Q6H PRN PRN Reason: Nausea/Vomiting Last Admin: 06/14/19 16:47 Dose: 4 mg Sodium Chloride (Flush - Normal Saline) 10 ml IVF Q12HR [facility] Last Admin: 06/16/19 10:00 Dose: 10 ml Zolpidem Tartrate (Ambien) 5 mg PO HSPRN PRN PRN Reason: Insomnia Vital Signs & Weight: Vital Signs Temp Pulse Pulse Pulse Resp BP BP 06/16/19 13:28 99 99 139/77 116/89 06/16/19 08:30 94 94 120/73 118/68 06/16/19 08:00 96.7 F L 93 16 BP Pulse Ox Pulse Ox Pulse Ox 06/16/19 13:28 98 97 06/16/19 08:30 95 06/16/19 08:00 114/69 95 Admit Weight 175 lb 0.752 oz Weight 174 lb 6.4 oz - Quality Measures Condition: Coronary Artery Disease, Myocardial Infarction CV meds: Beta Alberto: Yes, BRIDGETTE/ARB: Yes, Statin: Yes, ASA: Yes, Plavix/Effient/ Brilinta: No - Physical Exam General: alert & oriented x3 HEENT: mucus membranes moist Neck: supple neck Cardiac: regular rate and rhythm Lungs: clear to auscultation Neuro: grossly intact Abdomen: active bowel sounds, soft, non-tender Skin: clear Musculoskeletal: normal range of motion - Labs Result Diagrams: 06/16/19 04:52 06/16/19 04:52 Troponin/CKMB CK-MB (CK-2) 80.3 ng/mL (0-6.6) H* 06/14/19 02:42 Troponin I 24.533 ng/mL (< 0.028) H* 06/14/19 02:42 - Telemetry Sinus rhythms and dysrhythmias: sinus rhythm - Assessment/Plan Assessment/Plan: 1. Acute anterior STEMI 2. Multivessel CAD. 3. HTN 4. S/P CABG x 5 t[place]ley to LAD, Sequential left radial to D1 and OM1, SVG to D2, SVG to the LCx, SVG to the PL PLAN: - ASA/statin for life. - On low dose BB. - Will start ACEI low dose. - PT and increase as tolerated. - Home soon.
[2019-06-16] MEDS: Atorvastatin Calcium 40 MG TAB PO SCH (21:56)
[2019-06-17 06:19] LABS: #Eosinphils 0.1 thou/uL (0.0-0.7); #Lymphocytes 1.3 thou/uL (1.20-3.40); #Monocytes 0.8 thou/uL (0.11-0.59); #Neutrophils 7.3 thou/uL (1.40-6.50); %Lymphocytes 14.1 % (21.0-51.0); %Monocytes 8.5 % (0.0-10.0); %Neutrophils 76.4 % (42.0-75.0); Hemoglobin 9.3 g/dL (14.0-18.0); Mean Corpuscular HGB CONC 34.3 g/dL (32.0-36.0); Mean Corpuscular Hemoglobin 31.3 pg (27.0-31.0); Mean Corpuscular Volume 91.3 fL (78.0-98.0); Mean Platelet Volume 6.8 fL (7.4-10.4); Platelet Count 160 thou/uL (130-400); RBC Distribution Width 12.3 % (11.5-14.5); Red Blood Cell (RBC) Count 2.97 mill/uL (4.70-6.10); White Blood Cell (WBC) Count 9.5 thou/uL (4.8-10.8)
[2019-06-17 06:34] LABS: Anion Gap 9 mmol/L (10-20); BUN (Urea Nitrogen) 12 mg/dL (8.4-25.7); Calc. Creatinine Clearance 136 mL/min (70-130); Calcium 8.3 mg/dL (7.8-10.44); Carbon Dioxide 27 mmol/L (22-29); Chloride 99 mmol/L (98-107); Estimated GFR-MDRD Greater than 90; Glucose 109 mg/dL (70-105); Sodium 131 mmol/L (136-145)
[2019-06-17] MEDS: HYDROcodone/Acetaminophen 5/325 mg Tablet PO PRN (08:09)
[2019-06-17] MEDS: Metoprolol Tartrate 25 MG TAB PO SCH (08:13)
[2019-06-17] MEDS: Aspirin Chewable 81 MG TAB PO SCH (08:13)
[2019-06-17] MEDS: Docusate 100 MG CAP PO SCH (08:13)
[2019-06-17] MEDS ORDERED: Lisinopril 2.5 MG TAB PO SCH (09:00)
--- NOTE | 2019-06-17 13:03 | PDOC.CPN ---
- Subjective Date: 06/17/19 Time: 13:03 Interval history: Doing well. Passing has, no BM yet but feels well and not constipated. Walking without issues. - Review of Systems General: denies: fever/chills, weight/appetite/sleep changes, night sweats, fatigue Respiratory: denies: cough, congestion, shortness of breath, exercise intolerance Cardiovascular: denies: chest pain, palpitation, edema, paroxysmal nocturnal dyspnea, orthopnea Gastrointestinal: denies: nausea, vomiting, diarrhea, constipation, abd pain, GI bleeding Musculoskeletal: denies: pain, tenderness, stiffness, swelling, arthritis/ arthralgias Neurological: denies: numbness, syncope, seizure, weakness - Objective Allergies/Adverse Reactions: Allergies Allergy/AdvReac Type Severity Reaction Status Date / Time No Known Allergies Allergy Unverified 06/13/19 20:39 Visit Medications: Current Medications Hydrocodone Bitart/Acetaminophen ([place] 5/325) 1 tab PO Q4H PRN PRN Reason: Moderate Pain (4-6) Last Admin: 06/17/19 08:09 Dose: 1 tab Hydrocodone Bitart/Acetaminophen ([place] 5/325) 2 tab PO Q4H PRN PRN Reason: Severe Pain (7-10) Last Admin: 06/16/19 05:18 Dose: 2 tab Al Hydroxide/Mg Hydroxide (Maalox) 30 ml PO Q4H PRN PRN Reason: Indigestion Artificial Tears (Tears Naturale) 0 drop EA EYE PRN PRN PRN Reason: Dry Eyes Aspirin (Aspirin Chewable) 81 mg PO DAILY [facility] Last Admin: 06/17/19 08:13 Dose: 81 mg Atorvastatin Calcium (Lipitor) 40 mg PO HS [facility] Last Admin: 06/16/19 21:56 Dose: 40 mg Bisacodyl (Dulcolax) 10 mg PO Q12H PRN PRN Reason: Constipation Bisacodyl (Dulcolax) 10 mg ID Q12H PRN PRN Reason: Constipation Diphenhydramine HCl (Benadryl) 25 mg PO Q6H PRN PRN Reason: Itching & Insomnia or Derrell Javy Docusate Sodium (Colace) 100 mg PO BID [facility] Last Admin: 06/17/19 08:13 Dose: 100 mg Guaifenesin/Dextromethorphan (Robitussin Dm) 15 ml PO Q4H PRN PRN Reason: Cough Lisinopril (Zestril) 2.5 mg PO DAILY [facility] Last Admin: 06/17/19 08:13 Dose: 2.5 mg Metoprolol Tartrate (Lopressor) 25 mg PO BID [facility] Last Admin: 06/17/19 08:13 Dose: 25 mg Mineral Oil (Fleet Mineral Oil) 133 ml ID DAILYPRN PRN PRN Reason: Constipation Nitroglycerin (Nitrostat) 0.4 mg SL Q5MIN PRN PRN Reason: Chest Pain Ondansetron HCl (Zofran) 4 mg IVP Q6H PRN PRN Reason: Nausea/Vomiting Last Admin: 06/14/19 16:47 Dose: 4 mg Sodium Chloride (Flush - Normal Saline) 10 ml IVF Q12HR [facility] Last Admin: 06/17/19 08:13 Dose: 10 ml Zolpidem Tartrate (Ambien) 5 mg PO HSPRN PRN PRN Reason: Insomnia Vital Signs & Weight: Vital Signs Temp Pulse Pulse Pulse Resp BP BP 06/17/19 08:45 96 88 125/76 114/70 06/17/19 08:13 94 06/17/19 07:27 98.7 F 94 18 06/17/19 03:20 98.2 F 86 20 BP BP Pulse Ox Pulse Ox Pulse Ox 06/17/19 08:45 98 94 L 06/17/19 08:13 06/17/19 07:27 114/73 96 06/17/19 03:20 114/66 96 Admit Weight 175 lb 0.752 oz Weight 170 lb 11.2 oz - Quality Measures Condition: Coronary Artery Disease, Myocardial Infarction CV meds: Beta Alberto: Yes, BRIDGETTE/ARB: Yes, Statin: Yes, ASA: Yes, Plavix/Effient/ Brilinta: No, Anticoagulant: No - Medication Contraindications No Anticoagulant reason: Treatment not indicated - Physical Exam General: alert & oriented x3, no apparent distress HEENT: mucus membranes moist Neck: supple neck Cardiac: regular rate and rhythm Lungs: clear to auscultation Neuro: grossly intact Abdomen: active bowel sounds, soft, non-tender Skin: clear Musculoskeletal: normal range of motion - Labs Result Diagrams: 06/17/19 05:27 06/17/19 05:27 Troponin/CKMB CK-MB (CK-2) 80.3 ng/mL (0-6.6) H* 06/14/19 02:42 Troponin I 24.533 ng/mL (< 0.028) H* 06/14/19 02:42 - Telemetry Sinus rhythms and dysrhythmias: sinus rhythm - Assessment/Plan Assessment/Plan: 1. Acute anterior STEMI 2. Multivessel CAD. 3. HTN 4. S/P CABG x 5 Stanley to LAD, Sequential left radial to D1 and OM1, SVG to D2, SVG to the LCx, SVG to the PL PLAN: - ASA/statin for life. - On low dose BB and ACEI. - Follow up in 1 month.
[2019-06-17 14:07] VITALS: BP 109/67; TEMP 98.8
--- NOTE | 2019-06-17 16:29 | EKG ---
Test Reason : Blood Pressure : / mmHG Vent. Rate : 080 BPM Atrial Rate : 080 BPM P-R Int : 168 ms QRS Dur : 072 ms QT Int : 384 ms P-R-T Axes : 065 046 062 degrees QTc Int : 442 ms Sinus rhythm with marked sinus arrhythmia ST elevation, consider early repolarization, pericarditis, or injury Abnormal ECG Confirmed by DIGNA CASEY ([id number]) on 06/17/2019 4:29:36 PM Referred By: DAVID Confirmed By:DIGNA CASEY
--- NOTE | 2019-06-17 16:34 | EKG ---
Test Reason : Blood Pressure : / mmHG Vent. Rate : 058 BPM Atrial Rate : 058 BPM P-R Int : 140 ms QRS Dur : 114 ms QT Int : 492 ms P-R-T Axes : 024 029 012 degrees QTc Int : 482 ms Sinus bradycardia Low voltage QRS Right bundle branch block Possible Inferior infarct , age undetermined Abnormal ECG Confirmed by DIGNA CASEY ([id number]) on 06/17/2019 4:33:56 PM Referred By: DANA Confirmed By:DIGNA CASEY
--- NOTE | 2019-06-17 16:38 | EKG ---
Test Reason : STAT Blood Pressure : / mmHG Vent. Rate : 100 BPM Atrial Rate : 100 BPM P-R Int : 140 ms QRS Dur : 064 ms QT Int : 366 ms P-R-T Axes : 055 005 048 degrees QTc Int : 472 ms Normal sinus rhythm ST elevation now present in Anterior leads ACUTE NH / STEMI Inferior infarct (cited on or before 14-JUN-2019) T wave abnormality, consider anterior ischemia Abnormal ECG Confirmed by DIGNA CASEY ([id number]) on 06/17/2019 4:37:50 PM Referred By: CARMELLA HERNANDEZ Confirmed By:DIGNA CASEY
--- NOTE | 2019-06-17 17:12 | DIS ---
DATE OF ADMISSION: 06/13/2019 DATE OF DISCHARGE: 06/17/2019 PRINCIPAL DIAGNOSES: Coronary artery disease with anterior ST-elevation myocardial infarction and post infarction angina. SECONDARY DIAGNOSIS: Hypertension. PROCEDURES PERFORMED: Cardiac catheterization on 06/13/2019, coronary artery bypass grafting x5 with left internal mammary artery to the distal left anterior descending, sequential left radial artery graft from the aorta to the first diagonal to the first obtuse marginal and reverse greater saphenous vein graft from the aorta to the second diagonal and to the posterolateral branch of the dominant circumflex on 06/14/2019. HISTORY OF PRESENT ILLNESS AND HOSPITAL COURSE: The patient is a 53-year-old man with hypertension and a positive family history of premature coronary artery disease. The day prior to presentation, he noticed some dyspnea with simple house chores and in the following morning, had some chest tightness while drinking his morning coffee that was short lived, but later in the evening he had a more severe episode of chest tightness that radiated into his left arm and was associated with diaphoresis. When he presented to a local facility, was found to have mild ST elevation in anterior leads, and he was transferred to [facility]. By his arrival here, his pain had resolved. Cardiac catheterization demonstrated an ostial left main lesion and a left dominant system. He also had a very high-grade lesions in the proximal LAD and in the first obtuse marginal, as well as some smaller ramus type diagonal and second diagonal. He had some mild angina during the night that resolved spontaneously. The following morning, he underwent surgical revascularization. He was extubated on the day of surgery and transferred out of the intensive care unit on postoperative day 1. He was started on Lopressor at 12.5 mg b.i.d. in lieu of his home dose of Norvasc. His lisinopril was held on postoperative day two. His chest tubes and wires were removed and his Lopressor was increased to 25 mg b.i.d. and his lisinopril was reintroduced at a low dose of 2.5 mg a day. Today on postoperative day 3, he is doing well. He got around well yesterday. His heart rate has mostly been sinus in the 85 to 90 range, occasionally getting up to around 100. His blood pressures have been in the 110 to 115 range systolic with blood pressures mostly in the 60s and 70s, and he has been afebrile. His room air O2 saturations are in the mid-to-high 90s and his laboratories have been stable. He is being discharged home now with a prescription for Vicodin as needed for pain, Lopressor 25 mg b.i.d., and lisinopril 2.5 mg a day. He is to stop his Norvasc and his lisinopril will be increased if his blood pressure tolerates. He is also being sent home with a prescription for Lipitor 40 mg a day. Job ID: [id number]
[2019-06-18 09:58] LABS: Actual Bicarbonate (HCO3a) 18.1 mEq/L (22-28); Analyzer IN Cardio OR; Base Excess (BEa) -5.7 mEq/L (-2.0 to +3.0); CO2 Tension 30.8 mmHg (35.0-45.0); Calcium, Ionized 1.08 mmol/L (1.12-1.30); Carboxyhemoglobin (COHb) 0.2 gm% (0.0-3.0); Hemoglobin (Hb) 13.9 g/dL (14.0-18.0); O2 Tension (PaO2) 491.7 mmHg (80.0-100.0); Potassium - ABG Lab 4.27 mmol/L (3.70-5.30); pH, Arterial 7.39 (7.35-7.45)
[2019-06-18 09:58] LABS: Actual Bicarbonate (HCO3a) 24.2 mEq/L (22-28); Analyzer IN Cardio OR; Base Excess (BEa) -0.9 mEq/L (-2.0 to +3.0); CO2 Tension 41.8 mmHg (35.0-45.0); Calcium, Ionized 0.91 mmol/L (1.12-1.30); Carboxyhemoglobin (COHb) 0.3 gm% (0.0-3.0); Hemoglobin (Hb) 10.2 g/dL (14.0-18.0); O2 Tension (PaO2) 392.9 mmHg (80.0-100.0); Potassium - ABG Lab 5.81 mmol/L (3.70-5.30); pH, Arterial 7.38 (7.35-7.45)
[2019-06-18 09:58] LABS: Actual Bicarbonate (HCO3a) 17.2 mEq/L (22-28); Analyzer IN Cardio OR; Base Excess (BEa) -5.4 mEq/L (-2.0 to +3.0); CO2 Tension 26.7 mmHg (35.0-45.0); Calcium, Ionized 1.12 mmol/L (1.12-1.30); Carboxyhemoglobin (COHb) 0.4 gm% (0.0-3.0); Hemoglobin (Hb) 14.6 g/dL (14.0-18.0); O2 Tension (PaO2) 382.9 mmHg (80.0-100.0); Potassium - ABG Lab 3.66 mmol/L (3.70-5.30); pH, Arterial 7.43 (7.35-7.45)
[2019-06-18 09:59] LABS: Actual Bicarbonate (HCO3v) 23 mEq/L (22-28); Analyzer IN Cardio OR; Base Excess -2.5 mEq/L (-2.0 to +3.0); Calcium, Ionized 0.93 mmol/L (1.16-1.32); Chloride (ABG LAB) 100 mmol/L (98-106); Sodium 128.5 mmol/L (133-146); pH (venous) 7.35 (7.32-7.43)
[2019-06-18 09:59] LABS: Actual Bicarbonate (HCO3a) 25.9 mEq/L (22-28); Analyzer IN Cardio OR; Base Excess (BEa) -0.6 mEq/L (-2.0 to +3.0); CO2 Tension 52.8 mmHg (35.0-45.0); Calcium, Ionized 0.91 mmol/L (1.12-1.30); Carboxyhemoglobin (COHb) 0.3 gm% (0.0-3.0); Hemoglobin (Hb) 8.5 g/dL (14.0-18.0); O2 Tension (PaO2) 409.8 mmHg (80.0-100.0); Potassium - ABG Lab 6.29 mmol/L (3.70-5.30); pH, Arterial 7.31 (7.35-7.45)
[2019-06-18 09:59] LABS: Actual Bicarbonate (HCO3a) 23.6 mEq/L (22-28); Analyzer IN Cardio OR; Base Excess (BEa) -2.9 mEq/L (-2.0 to +3.0); CO2 Tension 49.8 mmHg (35.0-45.0); Calcium, Ionized 0.95 mmol/L (1.12-1.30); Carboxyhemoglobin (COHb) 0.3 gm% (0.0-3.0); Hemoglobin (Hb) 9.2 g/dL (14.0-18.0); O2 Tension (PaO2) 402.8 mmHg (80.0-100.0); Potassium - ABG Lab 5.51 mmol/L (3.70-5.30); pH, Arterial 7.29 (7.35-7.45)
[2019-06-18 10:00] LABS: Actual Bicarbonate (HCO3a) 20.9 mEq/L (22-28); Analyzer IN Cardio OR; Base Excess (BEa) -2.7 mEq/L (-2.0 to +3.0); CO2 Tension 32.2 mmHg (35.0-45.0); Calcium, Ionized 1.01 mmol/L (1.12-1.30); Carboxyhemoglobin (COHb) 0.2 gm% (0.0-3.0); Hemoglobin (Hb) 11.7 g/dL (14.0-18.0); O2 Tension (PaO2) 495.1 mmHg (80.0-100.0); Potassium - ABG Lab 3.83 mmol/L (3.70-5.30); pH, Arterial 7.43 (7.35-7.45)
[2019-06-18 10:00] LABS: Analyzer IN Cardio OR; Base Excess (BEa) -7.4 mEq/L (-2.0 to +3.0); Calcium, Ionized 0.91 mmol/L (1.12-1.30); Carboxyhemoglobin (COHb) 0.4 gm% (0.0-3.0); Hemoglobin (Hb) 7.7 g/dL (14.0-18.0); O2 Tension (PaO2) 298.3 mmHg (80.0-100.0); Potassium - ABG Lab 3.15 mmol/L (3.70-5.30); pH, Arterial 7.37 (7.35-7.45)
[2019-06-18 10:01] LABS: Puncture Site ALINE
[2019-06-18 10:01] LABS: Puncture Site ALINE
[2019-06-18 10:02] LABS: Puncture Site ALINE
[2019-06-18 10:02] LABS: Puncture Site ALINE
[2019-06-18 10:03] LABS: Puncture Site ALINE
[2019-06-18 10:03] LABS: Puncture Site ALINE
[2019-06-18 10:04] LABS: Puncture Site ALINE
== END 2019-06-17 14:07 | disposition home or self-care (01) | DRG 234 ==
LOC: ERS 19:53 → 2NO 20:00 → CCU 20:15 → 2NO 06-15 17:51
PROVIDERS: ADMIT Internal Medicine Cardiovascular Disease; ATTEND Internal Medicine Cardiovascular Disease
PROC: 4A023N7 Measurement of Cardiac Sampling and Pressure, Left Heart, Percutaneous Approach (ICD-10-PCS; 2019-06-13)
PROC: B2111ZZ Fluoroscopy of Multiple Coronary Arteries using Low Osmolar Contrast (ICD-10-PCS; 2019-06-13)
PROC: 02100Z9 Bypass Coronary Artery, One Artery from Left Internal Mammary, Open Approach (ICD-10-PCS; principal; 2019-06-14)
PROC: 06BQ4ZZ Excision of Left Saphenous Vein, Percutaneous Endoscopic Approach (ICD-10-PCS; 2019-06-14)
PROC: 021109W Bypass Coronary Artery, Two Arteries from Aorta with Autologous Venous Tissue, Open Approach (ICD-10-PCS; 2019-06-14)
PROC: 02110AW Bypass Coronary Artery, Two Arteries from Aorta with Autologous Arterial Tissue, Open Approach (ICD-10-PCS; 2019-06-14)
PROC: 03BC0ZZ Excision of Left Radial Artery, Open Approach (ICD-10-PCS; 2019-06-14)
PROC: 5A1221Z Performance of Cardiac Output, Continuous (ICD-10-PCS; 2019-06-14)
DX: I21.09 ST elevation (STEMI) myocardial infarction involving other coronary artery of anterior wall (principal); I10 Essential (primary) hypertension; I25.118 Atherosclerotic heart disease of native coronary artery with other forms of angina pectoris
CPT/HCPCS: 36415; 36416; 36430; 71045; 80048; 80053; 82553; 82805; 83036; 84484; 85025; 85610; 85730; 86850; 86900; 86901; 93005; 93010; 93306; 93458; 93798; 94002; 94150; 94760; C1769; J1644; J1815; J1885; J2001; J2150; J2250; J2405; J2440; J2704; J2720; J3010; J3370; J3475; J3480; J3490; J7050; P9045; Q9967; S0017; S0028